=== PATIENT | female | born 1950 | race Two or more races ===

== ENCOUNTER 2016-08-18 12:40 | Inpatient (IN) | payer OTHER ==
--- NOTE | ~2016-08-18 | CT71 ---
[facility] A Service of [facility] RADIOLOGY TEXT RESULTS PATIENT: DAVID COLMENARES LOCATION: CEDOF : 52 UNIT #: [id number] AGE: [address]: HEENA GARCIA MD SEX: F ORDER DR: [id number] [facility] [address]. [place], [place] [address] [id number] E MR#: [id number] Acc #: [id number] NAME: DAVID COLMENARES : 1950 SEX: F STUDY DATE/TIME: 08/18/2016 12:09 UNIT: [facility] ROOM: STUDY DESCRIPTION: CT Head Wo Contrast Attending Physician: Robin Shepard M.D. Ordering Physician: Robin Shepard M.D. Primary Care Physician: No Primary Care Physician MEDICAL IMAGING REPORT This report is preliminary unless electronic signature is present EXAM Head CT without contrast. HISTORY Dizziness, syncope, and slurred speech beginning yesterday accompanied by weakness and gait disturbance. TECHNIQUE Axial images were obtained without contrast. This CT exam was performed with one or more of the following radiation dose reduction techniques: automatic exposure control, adjustment of mA and/or kV according to patient size, and iterative reconstruction. FINDINGS Ventricular asymmetry is noted. There is no evidence of mass lesion, hemorrhage, or edema. Mild chronic ischemic changes are seen in the periventricular deep white matter bilaterally. Extraaxial structures are unremarkable. There are no acute findings. IMPRESSION Ventricular asymmetry of doubtful significance. Mild chronic ischemic changes around the ventricles. No acute findings. Dictated by... Isidro Virgen M.D. THIS IS AN ELECTRONICALLY VERIFIED REPORT Isidro Virgen M.D. at 08/18/2016 4:39 PM RLF/miguel aw [facility] A Service of [facility] RADIOLOGY TEXT RESULTS PATIENT: DAVID COLMENARES LOCATION: CEDOF : 52 UNIT #: [id number] AGE: [address]: HEENA GARCIA MD SEX: F ORDER DR: TD: 08/18/2016 13:45 JOB #: [id number] MEDICAL IMAGING REPORT Page 1 of 1 COPY
--- NOTE | ~2016-08-18 | HP ---
Unit #: [id number] #: [id number] Patient: DAVID COLMENARES [id number] [address] [address] [id number] E MR#: [id number] NAME: DAVID COLMENARES ROOM: Age: 65 Sex: F Admission Date: 08/18/2016 : 1950 Attending Physician: Robin Shepard M.D. Primary Care Physician: No Primary Care Physician HISTORY AND PHYSICAL CHIEF COMPLAINT Slurred speech. HISTORY OF PRESENT ILLNESS The patient is a 65-year-old female with a history of coronary artery disease and hypertension. She was brought to the emergency room with slurred speech and dizziness. The patient is unable to provide any history. History is obtained by speaking to the emergency room physician and reviewing the records. The patient was found to be bradycardic at the time of arrival with a heart rate of 51 and blood pressure 97/80. The patient was found to be hypotensive, also with a blood pressure of 97/80. During the emergency room time and the patient was found to go down to the 40s and the patient received atropine times 1, 0.5 mg. After that the patient's blood pressure and heart rate improved and the patient has been admitted for dizziness and near syncope, hypotension and sinus bradycardia. The patient opens the eyes and admits to snorting the drugs. The patient goes back to sleep and is un able to provide any further history. PAST MEDICAL HISTORY 1. History of hypertension. 2. Coronary artery disease. PAST SURGICAL HISTORY Two surgeries. SOCIAL HISTORY No history of smoking or alcohol. Unsure about illicit drug abuse. FAMILY HISTORY Reviewed and none. ALLERGIES No known drug allergies. HOME MEDICATIONS 1. Nitrazepam 5 mg. 2. Enalapril 20 mg. 3. Multivitamins. 4. Omeprazole. REVIEW OF SYSTEMS Unable to obtain. Unit #: [id number] #: [id number] Patient: DAVID COLMENARES PHYSICAL EXAMINATION GENERAL: The patient is lying on the bed, not in acute distress. VITALS: Temperature 97.4, pulse 51, respiratory rate 18, blood pressure 97/80, saturating 100% on room air. HEENT: Head atraumatic, normocephalic. Pupils equal, round and reactive to light and accommodation. Extraocular movements intact. Dry mucous membranes. NECK: Supple. No jugular venous distension. LUNGS: Clear to auscultation. HEART: Regular rate and rhythm. Bradycardic. ABDOMEN: Soft. Positive bowel sounds. EXTREMITIES: No cyanosis or clubbing. NEUROLOGIC: Unable to assess. The patient is lethargic. DIAGNOSTIC STUDIES IMAGING: CT of the head shows ventricular asymmetry of doubtful significance. Mild chronic ischemic changes around the ventricles. No acute findings. Chest x-ray shows no acute cardiopulmonary findings. Significant leftward scoliosis at the thoracolumbar junction with Cohen angle of 51.8 degrees. LABORATORY: Glucose 55, BUN 13, creatinine 0.6, sodium 137, potassium 3.8, chloride 102, bicarb 29, calcium 8.9, total protein 6.5, albumin 3.5, AST 200, ALT 82, alkaline phosphatase 58. INR is 1. Troponin less than 0.05. White blood cell count 2.4, hemoglobin 12.3, hematocrit 37, platelets 228. CARDIOVASCULAR: EKG shows sinus bradycardia with a slow AK [address]-T changes. QTC 388. ASSESSMENT 1. Near syncope/dizziness. 2. Bradycardia. 3. Hypotension. 4. Rule out drug abuse. PLAN Admit the patient to observation with telemetry. Continue with IV fluids, normal saline at 225 mL per hour. Will have cardiology evaluation for bradycardia. Check urine toxicology as it is not determined whether he has (1) for unknown reason. Repeat serial troponins. Repeat the labs again in the morning. Further recommendations will follow. Dictated by Selin Tim TD: 08/18/2016 14:48 JOB #: [id number] Unit #: [id number] #: [id number] Patient: DAVID COLMENARES HISTORY AND PHYSICAL Page 1 of 1 X X HISTORY AND PHYSICAL
--- NOTE | ~2016-08-18 | A ---
[facility] Nutrition Therapy DATE: 08/19/16 Patient: DAVID HUNTER Physician: NOEL Address: [address] [place] [address] Room/Bed: [address] [place] [address], Zip: [place] [address] Admit Date: 08/18/16 Date of : 54 Height: 5 0 Weight: 88 40 NUTRITIONAL ASSESSMENT: REASON: PATIENT HAS A LOW BMI (17.2) PATIENT ADMITTED FOR DIZZINESS, NEAR SYNCOPE, HYPOTENSION, AND SINUS BRADYCARDIA PMH: CAD, HTN Anthropometrics: HT: 5'0", WT: 88#, BMI: 17.2, %IBW: 88 Labs: 08/19/16- CREAT: 0.4, CA: 8.2, AST: 200, ALT: 82 Meds: NACL, MVI+ MINS, DOPAMINE I/O & Bowel function: LBM: 08/18/16 Skin Integrity: INTACT Estimated Nutrition Needs: INCREASED 2' LOW BMI Assessment: CHART REVIEWED, EVENTS NOTED. PATIENT IS A 65 Y/O FEMALE ADMITTED FOR SLURRED SPEECH, DIZZINESS, HYPOTENSION, AND BRADYCARDIA. PER MD NOTES, ILLICIT DRUG USE IS UNKNOWN. PATIENT'S TOX SCREEN WAS POSITIVE FOR BENZODIAZEPINES. PATIENT HAS A LANGUAGE BARRIER, WITH EGYPTIAN BEING HER FIRST LANGUAGE. PATIENT HAD A FAMILY MEMBER AT BEDSIDE THAT WAS ABLE TO ANSWER A FEW QUESTIONS. PATIENT HAS A DECREASED APPETITE AND HAS BEEN EATING VERY LITTLE FOR A FEW DAYS. SHE DOES NOT DRINK ORAL NUTRITION SUPPLEMENTS AT HOME. FAMILY MEMBER WAS UNSURE OF ANY WEIGHT LOSS, AND WAS ENCOURAGING PATIENT TO EAT BREAKFAST TRAY. THIS RD DISCUSSED ENSURE SUPPLEMENTS AND IMPORTANCE OF PREVENTING WEIGHT LOSS. FAMILY AND PATIENT AGREEABLE TO TRYING ENSURE TID. Dx: INADEQUATE NUTRIENT INTAKE R/T CURRENT CONDITION AEB DECREASED APPETITE, LOW BMI Intervention: 1. HEART HEALTHY DIET, 2. MEDS/FLUIDS PER MD, 3. SUPPLEMENTATION Monitoring, Evaluation and Goals: 1. ADEQUATE PO INTAKES >50% OF MEALS 2. PREVENT, CORRECT MICRO/MACRO NUTRIENT DEFICIENCIES 3. PROMOTE A STEADY WEIGHT GAIN TOWARDS A HEALTHY BMI OF 19-25, PREVENT FURTHER WEIGHT LOSS MONITOR: WEIGHTS, LABS, PO/FLUID/SUPPLEMENT INTAKES [facility] Nutrition Therapy DATE: 08/19/16 Patient: DAVID HUNTER Physician: NOEL Address: [address] [place] [address] Room/Bed: 323[address] [facility], Zip: [place] [address] Admit Date: 08/18/16 Date of : [birth year] Height: 5 0 Weight: 88 40 Recommendations: 1. CONTINUE HEART HEALTHY DIET TOLERATED. MAY CONSIDER LIBERALIZING DIET TO REGULAR TO ENCOURAGE INCREASED PO INTAKES 2. RECOMMEND ENSURE TID WITH MEALS FOR ADDED NUTRIENT SUPPORT 3. OBTAIN WEIGHTS ROUTINELY (EVERY 2-3 DAYS) 4. IF PATIENT CONTINUES WITH DECREASED PO INTAKES/APPETITE AND WEIGHT LOSS,MAY NEED TO CONSIDER FURTHER NUTRITION INTERVENTIONS SUCH APPETITE STIMULANT OR EN. RD TO F/U PER PROTOCOL AND PRN R/T PATIENT MODERATELY COMPROMISED Respectfully, JIMBO OLIVARES, RD, LD [employer] and Nutrition[facility] Services [facility] cc: client file
--- NOTE | ~2016-08-18 | CO ---
Unit #: [id number] #: [id number] Patient: DAVID COLMENARES [id number] [address] [place], [place] [address] [id number] I MR#: [id number] NAME: DAVID COLMENARES ROOM: 323 Age: 65 Sex: F Admission Date: 08/18/2016 : 1950 Attending Physician: Ulises Scales M.D. Consultation Date: 08/19/2016 CONSULTATION REPORT REASON FOR CONSULTATION Syncope and chest pain. HISTORY OF PRESENT ILLNESS This is a 65-year-old Trinid[place] female, who speaks no St Lucian. Information has been obtained by certified court interpreter #[id number]. The patient states she came to the emergency room because of chest pain, dizziness, and near-syncope. For the past 4 days, she had chills. She felt substernal chest heaviness that she describes as a strong pain with occasional radiation to her right arm. She had associated headache and dyspnea. She has persistent nausea that she feels it is from her chronic pancreatitis. She has weakness and fatigue. Chest pain also occurs when she climbs up and downstairs. In the emergency room, she was bradycardic where heart rate was in the 50s. Overnight her heart rate has dropped as low as 30 beats per minute. The patient states she was hospitalized in [place] a few years ago for bradycardia. She says every time an EKG is done her heart rate is low. Yesterday, she felt this as if she may pass out. In the emergency room, troponin was negative. There was elevation of the CK total of 6183. There were no acute ischemic changes on EKG. No high-grade AV blocks noted on rhythm strip. She has been hypotensive, where her blood pressure has been off low was 83/51 mmHg. PAST MEDICAL HISTORY 1. Hypertension. 2. Bradycardia. 3. Pancreatitis. 4. Degenerative joint disease. 5. Scoliosis. 6. Former smoker. PAST SURGICAL HISTORY 1. Tubal ligation. 2. Repair of fistula. SOCIAL HISTORY The patient originated from [place]. She started smoking at age 9, but quit 9 years ago. Drinks alcohol on occasion. FAMILY HISTORY Mother from suicide when she was 7 years old. There is no heart disease in her siblings. ALLERGIES Unit #: [id number] #: [id number] Patient: DAVID COLMENARES No known drug allergies. HOME MEDICATIONS Vasotec 20 mg daily, multivitamin one tablet daily, and omeprazole 20 mg daily. REVIEW OF SYSTEMS CONSTITUTIONAL: Positive for chills. Has no fever. HEENT: Positive for headache and dizziness. CARDIOVASCULAR: Has chest discomfort as described in the HPI. Denies palpitations. No paroxysmal nocturnal dyspnea or orthopnea. Reports near syncope. RESPIRATORY: Negative for dyspnea, cough, or hemoptysis. GASTROINTESTINAL: No abdominal pain, but reports persistent diarrhea and nausea. EXTREMITIES: Negative for lower extremity edema. PHYSICAL EXAMINATION VITAL SIGNS: Blood pressure 94/56, heart rate 45, temperature 98.5. BMI 17. GENERAL: This is a thin-framed 65-year-old Trinid[place] female, who is in no acute distress. NEUROLOGIC: She is awake, alert, and oriented. There are no focal weaknesses. NECK: Trachea is midline. No thyromegaly or lymphadenopathy. No jugular venous distention. HEART: S1 and S2. Heart sounds are normal. No murmurs, rubs, or clicks. Regular rate and rhythm. LUNGS: Clear to auscultation without rales, rhonchi, or wheezes. ABDOMEN: Soft and nontender with bowel sounds are present. EXTREMITIES: Without leg edema. SKIN: Warm and dry. DIAGNOSTIC STUDIES LABORATORY RESULTS: Hemoglobin 11.0, hematocrit 32.9, platelet count 202, white count 2.8. Sodium 137, potassium 3.6, BUN 13, creatinine 0.4, glucose 86. AST 200, ALT 82. CK total 6182, troponin less than 0.03. IMAGING STUDIES: Chest x-ray shows a significant leftward scoliosis. No acute findings. CARDIOVASCULAR STUDIES: EKG shows sinus bradycardia with ectopic atrial rhythm with short NH interval. IMPRESSION 1. Near syncope. 2. Chest pain, rule out coronary artery disease. 3. Symptomatic ectopic bradycardia. 4. Hypotension. PLAN 1. Cardiology was consulted for bradycardia and chest pain. The patient's chest pain may be ischemic in origin. Troponin is negative with no acute ischemic changes on EKG. The patient's systolic blood pressure is 83 to 99 mmHg. Vasotec will be discontinued. 2. Preliminary echocardiogram shows normal size and motion. There was grade 2 diastolic dysfunction with an ejection fraction of 50% to 55%. No heart failure is noted on examination. Unit #: [id number] #: [id number] Patient: DAVID COLMENARES 3. We will observe the blood pressure off Vasotec. Continue dopamine for now for heart rate and blood pressure control. 4. We will follow the patient with you. Thank you for allowing us to assist in this patient's care. Dictated by... Garfield AlexisPLuisRLuisN. for Selin Loya/nuvia TD: 08/20/2016 23:39 JOB #: [id number] CONSULTATION REPORT Page 1 of 1 X Chung Alcantara SOA INTEGRATION ARCHITECT X CONSULTATION REPORT
--- NOTE | ~2016-08-18 | DS ---
Unit #: [id number] #: [id number] Patient: DAVID COLMENARES [id number] [address] [place], [place] [address] [id number] I MR#: [id number] NAME: DAVID COLMENARES ROOM: [facility] Age: 65 Sex: F Admission Date: 08/18/2016 : 1950 Discharge Date: 08/21/2016 Attending Physician: Lily Ohara M.D. DISCHARGE SUMMARY PRINCIPAL DIAGNOSES 1. Severe bradycardia secondary to sick sinus syndrome. 2. Near syncope secondary to bradycardia. 3. Hypotension, resolved. 4. Acute rhabdomyolysis, improving. 5. Transaminitis secondary to rhabdomyolysis, improving. 6. Leukopenia. 7. Normocytic anemia. 8. Diastolic congestive heart failure with ejection fraction of 50% to 55%. No acute exacerbation. 9. Moderate protein malnutrition. 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 Soria, Cardiology. PROCEDURES 1. Two-dimensional echocardiogram with ejection fraction of 50% to 55%. Pseudonormalization consistent with grade 2 diastolic dysfunction noted. Mild to moderate tricuspid regurgitation. Right ventricular systolic pressure [address] of the head without contrast on August 18, 2016, with ventricular asymmetry and mild chronic ischemic changes around the ventricles noted. 3. Chest x-ray on August 18, 2016, with no acute findings. Leftward scoliosis noted. CLINICAL HISTORY AND HOSPITAL COURSE Ms. Samson is a nice 65-year-old Georgian-speaking female who presented to the emergency department with lightheadedness and dizziness. Patient was also found to have slurred speech. In the emergency department, patient was found to be bradycardic with heart rate into the high 30s and low 40s and required a single dose of atropine. She was also mildly hypotensive. Patient was subsequently admitted. Cardiology was consulted, and patient was maintained on dopamine drip. She was also placed on IV fluids secondary to hypotension. On dopamine, patient's heart rate increased into the 60s, and the dopamine was decreased from 5 mcg/kg down to 2.5. Unfortunately, patient developed recurrent bradycardia with a heart rate in the 40s, though at rest she was symptomatic. This was discussed with the patient, and she is currently in need of a permanent pacemaker. Plans are for patient to be transferred to [facility] and to have a permanent pacemaker done tomorrow per Dr. Baez. This has all been discussed with the patient, who expressed her understanding. Unit #: [id number] #: [id number] Patient: DAVID COLMENARES In regards to patient's hypotension, her Vasotec was discontinued. She has been maintained on IV fluids, and systolic blood pressures generally are in the low 100s which, given her body habitus, is likely her baseline. Will continue her on IV fluids. Patient also had some mild transaminitis, and CPK was found to be elevated as high as 6000 upon presentation. Today, CK is now down to 1400. Will continue on IV fluids. Associated transaminitis is also improved. Patient also had some mild leukopenia with a white count generally running 3.5 to 4. I think this can be followed up as an outpatient. (1) is currently pending. Patient is agreeable with the plan to transfer to [facility]. DISCHARGE CONDITION Stable. DISCHARGE STATUS Transfer to [facility] when bed available. DISCHARGE MEDICATIONS 1. Tylenol 650 mg p.o. q.6 hours p.r.n. for pain or headache. 2. Atropine 0.5 mg IV p.r.n. for heart rate less than 40. 3. Daily multivitamin. 4. Protonix 40 mg daily. 5. Dopamine 5 mcg/kg/min. 6. Normal saline at 100 mL/hour. Of note, Lovenox has been held in anticipation of surgery. DISCHARGE INSTRUCTIONS 1. Patient will be n.p.o. after midnight in anticipation of permanent pacemaker placement. Until then, she can follow a regular diet. 2. She can increase her activity as tolerated, though she is essentially on bedrest. 3. Followup per Dr. Baez at [facility]. 1. Dictated by... Lily Ohara M.D. MATHEW/shanita TD: 08/21/2016 14:05 JOB #: [id number] DISCHARGE SUMMARY Page 1 of 1 X Lily Ohara MD DISCHARGE SUMMARY
--- NOTE | ~2016-08-18 | EKG ---
PATIENT: DAVID COLMENARES UNIT #: [id number] Ventricular Rate: 51 BPM Atrial Rate: 51 BPM P-R Interval: 106 ms QRS Duration: 92 ms Q-T Interval: 422 ms QTC Calculation(Bezet): 388 ms P Aynor: 20 degrees Calculated R Aynor: 73 degrees Calculated T Aynor: 43 degrees Diagnosis Line: Sinus bradycardia with short IA Diagnosis Line: Otherwise normal ECG Diagnosis Line: No previous ECGs available Diagnosis Line: Confirmed by MYRA BLAKE MD ([id number]) on 08/21/2016 Diagnosis Line: 10:45:48 PM INTERPRETING MD: HAYDEN ALBA
--- NOTE | ~2016-08-18 | CR72 ---
[facility] A Service of [facility] RADIOLOGY TEXT RESULTS PATIENT: DAVID COLMENARES LOCATION: [facility] : 54 UNIT #: [id number] AGE: [address]: Robin Shepard MD SEX: F ORDER DR: [id number] [facility] [address] [place], [place] [address] [id number] MR#: [id number] Acc #: [id number] NAME: DAVID COLMENARES : 1950 SEX: F STUDY DATE/TIME: 08/18/2016 11:34 UNIT: [facility] ROOM: STUDY DESCRIPTION: CR Chest Single View Portable Attending Physician: Robin Shepard M.D. Ordering Physician: Robin Shepard M.D. MEDICAL IMAGING REPORT This report is preliminary unless electronic signature is present EXAM Chest, portable, 08/18/2016, 1134 hours. CLINICAL HISTORY 65-year-old woman with complaint of shortness of air, weakness and dizziness today, unresponsive. COMPARISON None FINDINGS Single, portable view of the chest demonstrates normal heart size. Mediastinal and hilar contours are normal. The lungs are well expanded and clear. There is no pleural effusion or pneumothorax. There is a significant leftward scoliosis at the thoracic lumbar junction with Cohen angle measuring 52 degrees as measured from the superior endplate of T9 to the inferior endplate of L4. IMPRESSION 1. No acute cardiopulmonary findings. 2. Significant leftward scoliosis at the thoracolumbar junction with Ochen angle of 51.8 degrees. Dictated by... Mia Hodges M.D. THIS IS AN ELECTRONICALLY VERIFIED REPORT Mia Hodges M.D. at 08/18/2016 1:56 PM BONNIEM/loretta TD: 08/18/2016 12:33 [facility] A Service of [facility] RADIOLOGY TEXT RESULTS PATIENT: DAVID COLMENARES LOCATION: [facility] : 54 UNIT #: [id number] AGE: [address]: Robin Shepard MD SEX: F ORDER DR: JOB #: [id number] MEDICAL IMAGING REPORT Page 1 of 1 COPY
[2016-08-18 11:59] LABS: EOSINOPHIL# 0.1 X10e3 (0-0.7); EOSINOPHIL% 5.6 % (0.0-7.0); HEMOGLOBIN 12.3 gm/dL (12.0-16.0); LYMPHOCYTE# 0.9 X10e3 (1.0-3.5); LYMPHOCYTE% 37.8 % (17.0-45.0); MEAN CELL VOLUME 93.1 FL (83-96); MEAN CORPUSCULAR HEMOGLOBIN 30.9 PG (28-34); MEAN CORPUSCULAR HGB CONC 33.2 g/dL (30-36); MEAN PLATELET VOLUME 8.6 FL (6.5-11.5); MONOCYTE# 0.3 X10e3 (0-1.0); MONOCYTE% 12.9 % (3.0-12.0); NEUTROPHIL% 42.7 % (40-75); PLATELET COUNT 228 X10e3 (140-420); RED BLOOD COUNT 3.98 X10e (3.90-5.30); RED CELL DISTRIBUTION WIDTH 12.7 % (11.0-15.5); WHITE BLOOD COUNT 2.4 X10e3 (4.0-10.5)
[2016-08-18 12:04] LABS: POC - CKMB 2.2 ng/mL (0.0-7.9); POC - TROPONIN <0.05 ng/mL (<=0.05)
[2016-08-18 12:08] LABS: DIFF IND YES
[2016-08-18 12:09] LABS: PARTIAL THROMBOPLASTIN TIME 25.8 SECONDS (23.5-31.3)
[2016-08-18 12:21] LABS: PLATELET ESTIMATE NORMAL (NORMAL)
[2016-08-18 12:28] LABS: ALBUMIN SERUM 3.5 g/dL (3.5-5.0); BILIRUBIN, DIRECT 0.1 mg/dL (0.0-0.2); BILIRUBIN,INDIRECT 0.3 mg/dL (0.0-0.9); BILIRUBIN,TOTAL 0.4 mg/dL (0.2-2.0); BUN/CREATININE RATIO 21.66; CALCIUM SERUM 8.9 mg/dL (8.4-10.2); CREATININE SERUM 0.6 mg/dL (0.6-1.4); POTASSIUM 3.8 mmol/L (3.5-5.1); PROTEIN TOTAL SERUM 6.5 g/dL (6.0-8.3)
[2016-08-18 15:37] LABS: URINE SOURCE CLEAN CATCH
[2016-08-18 15:48] LABS: URINE APPEARANCE CLEAR; URINE BILIRUBIN NEG (NEG); URINE BLOOD NEG (NEG); URINE COLOR YELLOW; URINE GLUCOSE NEG (NEG); URINE KETONE NEG (NEG); URINE LEUKOCYTE ESTERASE NEG (NEG); URINE NITRATE NEG (NEG); URINE PROTEIN NEG (NEG); URINE SPECIFIC GRAVITY 1.009 (1.003-1.035); URINE UROBILINOGEN 0.2 MG/DL (NEG)
[2016-08-18 15:54] LABS: CULTURE INDICATED? NO
[2016-08-18 16:13] LABS: AMPHETAMINE NEG (NEG); BARBITURATES NEG (NEG); BENZODIAZEPINES POS (NEG); COCAINE NEG (NEG); MARIJUANA NEG (NEG); OPIATES NEG (NEG); TRICYCLIC ANTIDEPRESSANTS NEG (NEG); U METHADONE NEG (NEG)
[2016-08-18] MEDS ORDERED: MULTI VITAMIN1 EACH PO (16:54)
[2016-08-18] MEDS ORDERED: VASOTEC20 MG PO (16:54)
[2016-08-18] MEDS ORDERED: OMEPRAZOLE20 M1 PO (16:55)
[2016-08-18 19:53] LABS: MB 2.1 ng/ml
[2016-08-19 01:33] LABS: MB 1.9 ng/ml
[2016-08-19 06:12] LABS: HEMATOCRIT 32.9 % (35.0-45.0); MEAN CELL VOLUME 92.6 FL (83-96); MEAN CORPUSCULAR HGB CONC 33.5 g/dL (30-36); RED BLOOD COUNT 3.55 X10e (3.90-5.30); WHITE BLOOD COUNT 2.8 X10e3 (4.0-10.5)
[2016-08-19 06:33] LABS: BUN/CREATININE RATIO 32.5; CALCIUM SERUM 8.2 mg/dL (8.4-10.2); CREATININE SERUM 0.4 mg/dL (0.6-1.4); GLOM FILT RATE Estimated 110.9 mL/min (>60); POTASSIUM 3.6 mmol/L (3.5-5.1)
[2016-08-19 11:18] LABS: CHOLESTEROL 117 mg/dL (0-200); HDL CHOLESTEROL 53 mg/dL (35-95); LDL CHOLESTEROL 56 mg/dL (-130); LDL/HDL RATIO 1 RATIO (0-4); TRIGLYCERIDES 42 mg/dL (10-160)
[2016-08-20 07:15] LABS: BASOPHIL% 0.3 % (0-2.5); EOSINOPHIL# 0.1 X10e3 (0-0.7); EOSINOPHIL% 2.9 % (0.0-7.0); HEMATOCRIT 32.7 % (35.0-45.0); LYMPHOCYTE# 1.3 X10e3 (1.0-3.5); LYMPHOCYTE% 30.3 % (17.0-45.0); MEAN CELL VOLUME 91.3 FL (83-96); MEAN CORPUSCULAR HEMOGLOBIN 30.7 PG (28-34); MEAN CORPUSCULAR HGB CONC 33.7 g/dL (30-36); MEAN PLATELET VOLUME 8.5 FL (6.5-11.5); MONOCYTE# 0.3 X10e3 (0-1.0); MONOCYTE% 6.6 % (3.0-12.0); NEUTROPHIL# 2.5 X10e3 (1.5-7.1); NEUTROPHIL% 59.9 % (40-75); PLATELET COUNT 198 X10e3 (140-420); RED BLOOD COUNT 3.58 X10e (3.90-5.30); RED CELL DISTRIBUTION WIDTH 12.9 % (11.0-15.5); WHITE BLOOD COUNT 4.2 X10e3 (4.0-10.5)
[2016-08-20 07:18] LABS: DIFF IND NO
[2016-08-20 07:40] LABS: ALBUMIN SERUM 3.1 g/dL (3.5-5.0); BILIRUBIN,TOTAL 0.3 mg/dL (0.2-2.0); BUN/CREATININE RATIO 16.66; CALCIUM SERUM 8.4 mg/dL (8.4-10.2); CREATININE SERUM 0.6 mg/dL (0.6-1.4); MAGNESIUM 1.8 mg/dL (1.6-3.0); POTASSIUM 3.9 mmol/L (3.5-5.1); PROTEIN TOTAL SERUM 5.7 g/dL (6.0-8.3)
[2016-08-21 06:40] LABS: BASOPHIL% 0.4 % (0-2.5); EOSINOPHIL# 0.1 X10e3 (0-0.7); HEMATOCRIT 31.8 % (35.0-45.0); HEMOGLOBIN 10.6 gm/dL (12.0-16.0); LYMPHOCYTE# 1.6 X10e3 (1.0-3.5); LYMPHOCYTE% 46.3 % (17.0-45.0); MEAN CELL VOLUME 92.5 FL (83-96); MEAN CORPUSCULAR HEMOGLOBIN 30.7 PG (28-34); MEAN CORPUSCULAR HGB CONC 33.2 g/dL (30-36); MEAN PLATELET VOLUME 8.4 FL (6.5-11.5); MONOCYTE# 0.3 X10e3 (0-1.0); MONOCYTE% 8.8 % (3.0-12.0); NEUTROPHIL# 1.4 X10e3 (1.5-7.1); NEUTROPHIL% 41.5 % (40-75); PLATELET COUNT 187 X10e3 (140-420); RED BLOOD COUNT 3.44 X10e (3.90-5.30); WHITE BLOOD COUNT 3.4 X10e3 (4.0-10.5)
[2016-08-21 06:41] LABS: DIFF IND NO
[2016-08-21 07:30] LABS: ALBUMIN SERUM 2.8 g/dL (3.5-5.0); BILIRUBIN,TOTAL 0.2 mg/dL (0.2-2.0); CALCIUM SERUM 8.7 mg/dL (8.4-10.2); CREATININE SERUM 0.5 mg/dL (0.6-1.4); POTASSIUM 4.7 mmol/L (3.5-5.1); PROTEIN TOTAL SERUM 5.2 g/dL (6.0-8.3)
[2016-08-23 07:48] LABS: ANA SCREEN Negative (Negative); HA AB IGM (HEPPAN) Nonreactive (Nonreactive); HB CORE AB IGM (HEPPAN) Nonreactive (Nonreactive); HB S AG (HEPPAN) Nonreactive (Nonreactive); HEP C AB (HEPPAN) Nonreactive (Nonreactive); HEP C AB SIGNAL TO CUTOFF 0.02 ratio (<1.00)
== END 2016-08-21 17:04 | DRG 309 ==
LOC: CED 12:40 → CEDOF 14:20 → C3A PCU 18:45
PROVIDERS: Emergency Medicine; Internal Medicine; Internal Medicine Cardiovascular Disease
PROC: B24BYZZ Ultrasonography of Heart with Aorta using Other Contrast (ICD-10-PCS; principal; 2016-08-19)
DX: I49.5 Sick sinus syndrome (principal); M62.82 Rhabdomyolysis; I11.0 Hypertensive heart disease with heart failure; D70.9 Neutropenia, unspecified; E44.0 Moderate protein-calorie malnutrition; I95.9 Hypotension, unspecified; I50.32 Chronic diastolic (congestive) heart failure; Z68.1 Body mass index [BMI] 19.9 or less, adult; I25.10 Atherosclerotic heart disease of native coronary artery without angina pectoris; R47.81 Slurred speech; M19.90 Unspecified osteoarthritis, unspecified site; M41.9 Scoliosis, unspecified; Z87.891 Personal history of nicotine dependence; Z98.51 Tubal ligation status; R07.9 Chest pain, unspecified; R74.0 Nonspecific elevation of levels of transaminase and lactic acid dehydrogenase [LDH]
CPT/HCPCS: 36415; 70450; 71010; 80048; 80053; 80061; 80074; 80076; 80307; 81003; 82550; 82553; 82947; 83735; 84443; 84484; 85025; 85027; 85610; 85652; 85730; 86038; 86039; 86140; 87806; 93005; 93306; 94760; 96360; 99285; J0461; J1265; J1650

== ENCOUNTER 2017-01-13 14:52 | Emergency (ER) | payer OTHER ==
--- NOTE | ~2017-01-13 | EKG ---
PATIENT: DAVID COLMENARES UNIT #: [id number] Ventricular Rate: 66 BPM Atrial Rate: 66 BPM P-R Interval: 100 ms QRS Duration: 84 ms Q-T Interval: 388 ms QTC Calculation(Bezet): 406 ms P Monclova: 32 degrees Calculated R Monclova: 57 degrees Calculated T Monclova: 31 degrees Diagnosis Line: Sinus rhythm with short [place] Diagnosis Line: Otherwise normal ECG Diagnosis Line: When compared with ECG of 18-AUG-2016 11:36, Diagnosis Line: No significant change was found Diagnosis Line: Confirmed by NIURKA BORGES MD ([id number]) on 01/14/2017 Diagnosis Line: 5:56:12 PM INTERPRETING MD: JONY ALBA
[~2017-01-13 14:52] MED LIST: MULTI VITAMIN1 EACH PO; OMEPRAZOLE20 M1 PO; VASOTEC20 MG PO
[2017-01-13 17:19] LABS: BASOPHIL% 0.4 % (0-2.5); EOSINOPHIL% 1.4 % (0.0-7.0); HEMATOCRIT 37.5 % (35.0-45.0); HEMOGLOBIN 12.5 gm/dL (12.0-16.0); LYMPHOCYTE# 1.3 X10e3 (1.0-3.5); LYMPHOCYTE% 50.4 % (17.0-45.0); MEAN CELL VOLUME 91.3 FL (83-96); MEAN CORPUSCULAR HEMOGLOBIN 30.4 PG (28-34); MEAN CORPUSCULAR HGB CONC 33.3 g/dL (30-36); MEAN PLATELET VOLUME 8.6 FL (6.5-11.5); MONOCYTE# 0.2 X10e3 (0-1.0); MONOCYTE% 7.3 % (3.0-12.0); NEUTROPHIL% 40.5 % (40-75); PLATELET COUNT 206 X10e3 (140-420); RED BLOOD COUNT 4.11 X10e (3.90-5.30); RED CELL DISTRIBUTION WIDTH 12.6 % (11.0-15.5); WHITE BLOOD COUNT 2.6 X10e3 (4.0-10.5)
[2017-01-13 17:20] LABS: DIFF IND YES
[2017-01-13 17:23] LABS: ALBUMIN SERUM 4.1 g/dL (3.5-5.0); ALKALINE PHOSPHATASE 59 U/L (32-92); ALT (SGPT) 16 U/L (10-40); AST (SGOT) 22 U/L (10-42); BILIRUBIN, DIRECT 0.1 mg/dL (0.0-0.2); BILIRUBIN,INDIRECT 0.7 mg/dL (0.0-0.9); BILIRUBIN,TOTAL 0.8 mg/dL (0.2-2.0); BLOOD UREA NITROGEN 17 mg/dL (9-23); BUN/CREATININE RATIO 24.28; CALCIUM SERUM 9.3 mg/dL (8.4-10.2); CARBON DIOXIDE 26 mmol/L (22-31); CHLORIDE 102 mmol/L (100-111); CREATININE SERUM 0.7 mg/dL (0.6-1.4); GLOM FILT RATE Estimated 91.6 mL/min (>60); GLUCOSE FASTING 80 mg/dL (70-110); POTASSIUM 3.9 mmol/L (3.5-5.1); SODIUM 137 mmol/L (135-145)
[2017-01-13 17:24] LABS: ALCOHOL BLOOD <5 mg/dL (0)
[2017-01-13 17:58] LABS: PLATELET ESTIMATE NORMAL (NORMAL); RBC NORMAL YES
[2017-01-13 18:30] LABS: AMPHETAMINE NEG (NEG); BARBITURATES NEG (NEG); BENZODIAZEPINES NEG (NEG); COCAINE NEG (NEG); MARIJUANA NEG (NEG); OPIATES NEG (NEG); TRICYCLIC ANTIDEPRESSANTS NEG (NEG); U METHADONE NEG (NEG)
== END 2017-01-13 19:02 | disposition home or self-care (01) ==
LOC: CED 14:52
PROVIDERS: Emergency Medicine
DX: F32.9 Major depressive disorder, single episode, unspecified (principal); I11.0 Hypertensive heart disease with heart failure; I50.9 Heart failure, unspecified; Z79.899 Other long term (current) drug therapy; Z88.2 Allergy status to sulfonamides
CPT/HCPCS: 36415; 80048; 80076; 80307; 85025; 93005; 99284; G0480